=== PATIENT | male | born 1965 | race Caucasian/White ===

== ENCOUNTER 2023-12-03 21:09 | Emergency (ER) | payer OTHER, SELFPAY ==
[2023-12-03 21:11] VITALS: BP 162/110
--- NOTE | 2023-12-03 21:56 | ED.GENMED ---
History of Present Illness
General
Chief Complaint: Abdominal Pain
Time Seen by Provider: 12/03/23 21:56
Travel History
Have you had any contact with someone who has COVID-19?: No
Do you have any symptoms of coronavirus? Fever > 100 degrees, chills, cough, shortness of breath, sore throat, loss of taste or smell, muscle aches, or headache?: No
History of Present Illness
History of Present Illness:
HPI: Patient presents with upper abdominal pain mostly on the right side. This has been intermittent in nature. 3d of pain w/ radiation into the back/flank. No fevers. No N/V/D/C. Recently started metformin. This does not quite feel at the
time that he had a kidney stone on the left side 10 years ago.
EXAM:
GENERAL: Well appearing in no distress
HEENT: Moist oral mucosa
CARDIOVASCULAR: No murmurs, normal heart rate, regular rhythm, No chest wall tenderness
PULMONARY: No respiratory distress, breath sounds are clear and equal
ABDOMEN: Soft with no peritoneal signs, no significant tenderness including any tenderness in the right upper quadrant and epigastrium
NEUROLOGIC: Excellent strength all extremities, no coordination deficits
PSYCHIATRIC: Appropriate mental status, normal insight and judgement
EXTREMITIES: Nontender, no edema, moves all extremities equally
SKIN: No rash, no lesions
TIME OF INITIAL ENCOUNTER: 10 PM
NUMBER AND COMPLEXITY OF PROBLEMS ADDRESSED AT THE ENCOUNTER
� Chronic conditions affecting care: High blood pressure, hyperlipidemia, kidney stones
� Acute Exacerbation and/or Progression of Chronic Illness: This is an acute problem
� Differential Diagnosis includes: Biliary colic, cholecystitis, pancreatitis, ureteral stone/colic, musculoskeletal back/abdominal pain, GERD
AMOUNT AND/OR COMPLEXITY OF DATA TO BE REVIEWED AND ANALYZED
� I performed an independent evaluation of and my interpretation is:
EKG: Sinus 95, baseline artifact, leftward axis deviation, no acute ST abnormality, inferior Q waves noted with no old EKG to
CT: I personally viewed CT imaging, there is focal stranding noted at the pancreatic head consistent with focal pancreatitis
X-rays:
Laboratory Studies: White count 12.2, LFTs normal but lipase is 1130
Other: Ultrasound imaging shows an unremarkable gallbladder with unremarkable pancreas
� Review of other/old records: I reviewed records from 10 years ago when the patient was here with abdominal pain�at that time he was found to have an 8 mm proximal left ureter stone
� Clinical information was obtained by an independent historian: None needed
� Prescriptions/Medications Considered but not given:
� Further testing considered but not performed:
RISK OF COMPLICATIONS AND/OR MORBIDITY OR MORTALITY OF PATIENT MANAGEMENT
� Social determinants of health affecting care: Lives at home
� Discussion with other providers: I discussed with vision radiologist who noted inflammatory changes at the pancreatic head. I also contacted GI front office to arrange follow-up.
� Escalation of care including admission/observation vs risk of discharge considered: The patient has a few days of intermittent right upper quadrant pain radiating to the back. Will obtain both ultrasound and CT imaging as well
as labs. He appears very comfortable but at times states that he feels that he cannot get comfortable. Will give a dose of Toradol as well. The patient's lipase is somewhat elevated at 1130. He only rarely drinks alcohol. Imaging has been
obtained. CT imaging consistent with focal pancreatitis at the pancreatic head. Lipase is elevated at about 1100. I offered admission to the hospital however the patient that his symptoms are very mild. He was given a liter of fluid. He
strongly prefers outpatient management which I feel is reasonable as he appears very comfortable.
Past History
Past History
ED Past Medical History: HTN, Hypercholesterolemia and Other (Kidney stones)
Social History
Tobacco: Smoker
Alcohol: Occasional
Drug: None
Phy Exam
Physical Exam
Physical Exam:
See HPI
Course
Orders/Labs/Results
Orders:
Orders
12/03/23 21:16
EKG [Electrocardiogram (*1)] Urgent
Reason for Study: Abdominal Pain
EKG- Treatment ONCE
12/03/23 22:01
US Abdomen Complete/Upper Urgent
Comment:
Reason For Exam: upper pain
12/03/23 22:06
Complete Blood Count/With Diff Urgent
Comprehensive Metabolic Panel Urgent
Lipase Urgent
Troponin I Urgent
12/03/23 22:10
Ketorolac [Toradol] 15 mg .ROUTE .STK-MED ONE
Ketorolac [Toradol] 15 mg IV NOW STA
12/03/23 22:11
CT Abd/pel Without Iv Or Oral Urgent
Comment:
Reason For Exam: intermittently severe R side and R flank pain
12/03/23 23:00
0.9% Sodium Chloride 1000 ml [Nss] 1,000 ml IV BOLUS
Abnormal Lab Results
12/03/23
22:06
WBC 12.2 H 10^3/uL
(4.8-10.8)
Abs Immat Gran (auto) 0.1 H 10^3/uL
(0-0.05)
Absolute Neuts (auto) 8.4 H 10^3/uL
(1.4-6.5)
Absolute Monos (auto) 0.9 H 10^3/uL
(0.1-0.6)
BUN 21 H mg/dl
(9-20)
Glucose 154 H mg/dl
(70-99)
Lipase 1130 H* U/L
(23-300)
12/03/23 22:06
12/03/23 22:06
Vital Signs
Initial and Last Documented VS:
Initial Vital Signs
Temp Pulse Resp BP Pulse Ox
98.8 F 110 16 162/110 99
12/03/23 21:11 12/03/23 21:11 12/03/23 21:11 12/03/23 21:11 12/03/23 21:11
Last Documented Vital Signs
Temp Pulse Resp BP Pulse Ox
98.8 F 110 16 121/81 96
12/03/23 21:11 12/03/23 21:11 12/03/23 21:11 12/03/23 23:03 12/03/23 23:04
*Critical Care Note
Total Time (30-74mins, 75-104mins- exclusive of procedures): Not Applicable
ED Attending Note
-
Portions of this chart may have been created with voice recognition software.� Occasional wrong word or��sound alike� substitutions may have occurred due to the inherent limitations of voice recognition software.
Discharge Plan
Departure
Patient Disposition: Home (Routine Discharge)
Date of Disposition: 12/03/23
Time of Disposition: 23:56
Patient with high blood pressure during this ER visit?: Yes
Discharge Problem:
Pancreatitis, acute
Instructions: Clear Liquid Diet
Prescriptions:
No Action
atorvastatin 20 MG tablet
20 mg PO QPM
ciprofloxacin HCl 500 MG tablet
500 mg PO BID Qty: 14 0RF
tamsulosin 0.4 MG capsule
0.4 mg PO DAILY Qty: 7 0RF
ondansetron 4 MG tablet,disintegrating
4 mg PO TIDPRN PRN (Reason: NAUSEA) Qty: 13 0RF
hydromorphone 2 MG tablet
2 mg PO Q4HPRN PRN (Reason: pain) Qty: 17 0RF
Referrals:
Christopher Ahmadi DO [Family Provider] -
Anahi Valdez MD [Active] - Follow up in 2-3 days
Activity Restrictions/Additional Instructions:
On imaging studies, there is no sign of gallstones. Gallstones are a common cause of pancreatitis as his alcoholism. Since none of these apply to you, metformin use could be a another possibility since she just recently started it. I recommend
that you discuss this with your primary care doctor. Do not eat or drink anything else tonight. Slowly advance her diet tomorrow. Return here if worse. I have given you the contact information of a local GI doctor and contacted their office.
Interventions
Interventions:
*Risk Screen - Suicide Last Done: 12/03/23 21:11
*General Assessment Last Done: 12/03/23 21:11
*Neglect/Abuse Screening Last Done: 12/03/23 21:11
ED- Fall Risk Assessment Last Done: 12/03/23 22:16
KX-Dbhdon-Wzhpoaytvi Assessment Last Done: 12/03/23 22:15
Discharge Date and Time
Print Language: POLISH
[2023-12-03 22:06] VITALS: BP 141/104
[2023-12-03] MEDS: TORADOL 15 MG IV (22:11)
[2023-12-03 22:15] VITALS: BMI 29.5
[2023-12-03 22:18] LABS: % Basophils 0.3 % (0-2); % Eosinophils 1.6 % (0-6); % Immature Granulocytes 0.4 % (0-0.5); % Lymphocytes 21.1 % (20.5-51.1); % Monocytes 7.2 % (1.7-9.3); % Neutrophils 69.4 % (42.2-75.2); Absolute Eosinophils 0.2 10^3/uL (0-0.7); Absolute Immature Granulocytes 0.1 10^3/uL (0-0.05); Absolute Lymphocytes 2.6 10^3/uL (1.2-3.4); Absolute Monocytes 0.9 10^3/uL (0.1-0.6); Absolute Neutrophils 8.4 10^3/uL (1.4-6.5); Hematocrit 41.4 % (39.0-52.0); Hemoglobin 14.9 g/dL (13.0-18.0); Mean Corpuscular Hgb 30.1 pg (27.0-31.0); Mean Corpuscular Volume 83.6 fL (80.0-94.0); Nucleated Red Blood Cells % 0 % (-); Platelet Count 261 10^3/uL (130-400); Red Blood Cell Count 4.95 10^6/uL (4.70-6.10); Red Cell Dist. Width 12.5 % (11.5-14.5); White Blood Cell Count 12.2 10^3/uL (4.8-10.8)
[2023-12-03 22:37] LABS: ALT (SGPT) 23 U/L (0-50); AST (SGOT) 23 U/L (17-59); Albumin 4.6 g/dl (3.5-5.0); Alkaline Phosphatase 49 U/L (38-126); Blood Urea Nitrogen 21 mg/dl (9-20); Carbon Dioxide 24 mmol/L (22-30); Chloride 104 mmol/L (98-107); Estimated Creatinine Clearance 110 ml/min; Glucose 154 mg/dl (70-99); Lipase 1130 U/L (23-300); Sodium 136 mmol/L (135-145); Total Bilirubin 0.7 mg/dl (0.2-1.3); Total Protein 7.4 g/dl (6.3-8.2); eGFR > 60.00
[2023-12-03 22:45] LABS: Troponin I < 0.012 ng/ml
[2023-12-03 23:03] VITALS: BP 121/81
[2023-12-03] MEDS: NSS 1000 IV (23:09)
--- NOTE | 2023-12-03 23:30 | EDRN ---
Doctor discussed results with patient, he doesn't want to be admitted and wants to go home and is feeling better, patient will go home after fluids.
== END 2023-12-04 00:30 | disposition home or self-care (01) ==
LOC: EMR 21:09
PROVIDERS: EMERGENCY PHYSICIAN Emergency Medicine; FAMILY PHYSICIAN Family Medicine
DX: K85.90 Acute pancreatitis without necrosis or infection, unspecified (principal); I10 Essential (primary) hypertension; E78.00 Pure hypercholesterolemia, unspecified; F17.200 Nicotine dependence, unspecified, uncomplicated; Z87.442 Personal history of urinary calculi
CPT/HCPCS: 99284; 96374; 96361; 74176; 76700; 80053; 83690; 84484; 85025; 93005

== ENCOUNTER → 2024-01-05 07:38 | Outpatient (REF) | payer OTHER, SELFPAY | LOC: MRI 3T 07:38 | PROVIDERS: ATTENDING PHYSICIAN Internal Medicine Gastroenterology; FAMILY PHYSICIAN Family Medicine | DX: K85.00 Idiopathic acute pancreatitis without necrosis or infection (principal); R10.11 Right upper quadrant pain; R10.13 Epigastric pain | CPT/HCPCS: 74183; A9575 ==